=== PATIENT | female | born 1950 | race Caucasian/White ===

== ENCOUNTER → 2017-09-29 | Day surgery (SDC) | payer MEDICARE, BC ==
[~2017-09-29] MED LIST: ACETAMINOPHEN/HYDROcodone 325 MG/5 MG TAB ONE; BUPIVACAINE/EPINEPHRINE 0.5% PF 30 ML VIAL ONE; ISOSULFAN BLUE 50 MG/5 ML VIAL SQ ONE; LACTATED RINGER'S 1000 ML INJ 1,000 ML ONE; MEPERIDINE HCL 50 MG/ML VIAL ONE; MIDAZOLAM HCL 2 MG/2 ML VIAL ONE; ONDANSETRON HCL 4 MG/2 ML VIAL IV PUSH ONE; PROPOFOL 200 MG/20 ML AMP IV ONE; SODIUM CHLORIDE 0.9% INJ 0 ML ONE; ceFAZolin 2 GM PREMIX 50 ML ONE
--- NOTE | 2017-09-29 16:56 | RADONCENDT ---
END OF TREATMENT SUMMARY Date: 09/29/2017 Patient Name: Rachel Ham Date of : 1950 Age: 67 Sex: Female END OF TREATMENT SUMMARY PRIMARY REFERRING PHYSICIAN: Jonah Chaney CC: Jonah Chaney MD DIAGNOSIS: Primary C50.411 - Malignant neoplasm of upper-outer quadrant of right female breast, Diagnosed 09/01/2017 (Active) PRESCRIPTION AND TREATMENT: 2000 cGy to surface of applicator- TREATED PLAN FRACTIONS AND DATES: Course: One fraction delivered on 09/29/2017 TOLERANCE: Patient completed treatment without complications. FOLLOW UP PLAN: Patient to be seen in about 4 weeks. Vitor Harris MD 09/29/2017 4:56:21 PM This report was verified and signed electronically
--- NOTE | 2017-09-29 16:58 | RADONCOP ---
OPERATIVE REPORT Date: 09/29/2017 Patient Name: Rachel Ham OPERATIVE REPORT DATE OF SURGERY: 09/29/2017 REFERRING PHYSICIAN: Jonah Chaney PREOPERATIVE DIAGNOSIS: C50.411 - Malignant neoplasm of upper-outer quadrant of right female breast, Diagnosed 09/01/2017 (Active) POSTOPERATIVE DIAGNOSIS: C50.411 - Malignant neoplasm of upper-outer quadrant of right female breast, Diagnosed 09/01/2017 (Active) PROCEDURE: Intraoperative Radiation Therapy to the . SURGEON: Jonah Chaney ANESTHESIA: General ESTIMATED BLOOD LOSS: Minimal . INDICATIONS: Patient is a 67 year old female presenting with early stage breast cancer. She has elected to receive targeted intraoperative radiation therapy to the . DESCRIPTION OF PROCEDURE: Patient was taken to the operating room and placed on the table in the supine position. Following induction of general anesthesia, the and arm were prepped and draped sterilely. Ultrasound was performed of the breast to document the location of the breast malignancy. The wound was prepared for intraoperative radiation therapy. Based on the diameter of the cavity, a 4.5 cm radiation applicator was selected for the delivery of intraoperative radiation therapy. The applicator was then sterilely mounted onto the Intrabeam Stand. Retracting sutures were placed within the skin to be used to retract the skin edges away from the radiation source. The 4.5 cm Radiation applicator was then sterilely inserted into the wound. The superficial purse-string suture was tied down. Ultrasound was performed of the breast to document conformity of the surgical margins and the distance from the applicator to the skin surface (> 1.0 cm). The retracting sutures were then secured and a moistened lap pad was placed on the skin surface, followed by an external radiation barrier. Intraoperative radiotherapy was then initiated by the Radiation Oncologist. Total treatment time was 35 minutes. Upon completion of the intraoperative radiotherapy treatment, the radiation applicator, purse-string sutures and retracting sutures were removed from the wound. The wound was once again irrigated. Hemostasis was confirmed. The patient was then turned back over to the surgeon, Jonah Chaney in stable condition for completion of surgical procedure. Vitor Harris MD 09/29/2017 4:57:53 PM This report was verified and signed electronically
--- NOTE | 2017-09-30 12:48 | MP ---
cc: Jonah Chaney MD DATE OF OPERATION: 09/29/2017 PREOPERATIVE DIAGNOSIS: Right breast cancer, invasive ductal carcinoma. POSTOPERATIVE DIAGNOSIS: Right breast cancer, invasive ductal carcinoma. PROCEDURE PERFORMED: 1. Right axillary sentinel lymph node biopsy for invasive breast cancer. 2. Needle localized lumpectomy, right breast. 3. Placement of intraoperative radiation therapy probe 4.5 cm. ATTENDING SURGEON: Jonah Chaney MD TABLE MACHINE OPERATOR: AD Ugarte ANESTHESIA: General and local anesthetic. ESTIMATED BLOOD LOSS: Less than 25 cc COMPLICATIONS: None. FINDINGS: Adequate placement of 4.5 cm Zeiss intraoperative radiation therapy probe. INDICATIONS FOR THE PROCEDURE: The patient is a 67-year-old female who self palpated a mass in her right breast. The patient underwent mammogram, which showed a BI-RADS lesion suspicious for malignancy. The patient underwent a biopsy which showed invasive ductal carcinoma. After discussion with the patient about the treatment options and clinical staging, she was found to be a candidate for lumpectomy and intraoperative radiation therapy. The risks, benefits and alternatives were discussed. She agreed to undergo the procedure. The patient was also cleared and evaluated by Dr. Harris of radiation oncology prior to the procedure. NOTE: Nurse Practitioner, Stacey Hernandez's, presence was required throughout the procedure for the safe and efficient operation of this patient, as intraoperative therapy added to the complexity of the procedure. DESCRIPTION OF THE PROCEDURE: After the patient had undergone lymphoscintigraphy, as well as needle localization, the patient was taken to the operating room, placed in the supine position and placed under anesthesia with LMA airway. The patient's right axilla and breast were prepped and draped in a sterile fashion. Time out was performed. The sentinel lymph node biopsy was performed first. We used a small amount of local anesthetic below the axillary hairline and made a 3 cm incision with a 15 blade scalpel. We used Bovie electrocautery to the sites of the subcutaneous tissue and opened the clavipectoral fascia. Self retractor was placed and we gently explored the right axilla. There were two palpable nodes. These were actually the sentinel nodes. They were soft and seemed reactive. We excised these completely with the Bovie electrocautery and sent this separately. There was some tissue as well that was seen to have some background uptake and was palpable adjacent to these nodes and this was taken and sent as separate axillary tissue, nonsentinel type tissue. We evaluated the axilla. There was no bleeding. At this point in time, the background was minimal in the right axilla. We turned our attention towards closure. We closed the clavipectoral fascia gently with a running 3-0 Vicryl suture. We closed the skin with 4-0 Monocryl and Dermabond. We turned our attention towards the right breast and the needle localized lumpectomy. The wire was cut short to facilitate bringing it into the field. We made an approximately 4 cm incision around the skin areola interface laterally in the right breast. We used Bovie electrocautery to subcutaneous tissue and performed a lumpectomy cavity. The mass was somewhat palpable and, therefore, we could come down from top to bottom, staying completely around the mass with good margins. We did ellipse a small area of skin over this, directly over the specimen to facility IROT catheter placement. We continued dissection down until we encountered the wire. This was brought into the field and then we finally used again Bovie electrocautery to take the posterior margin from the lumpectomy cavity. It was marked with a stitch short superior and long anterior, which was also the skin margin. This was sent for radiology intraoperative evaluation and the specimen was found to be in the center of the lumpectomy cavity. We then irrigated out the cavity and used Bovie electrocautery to get excellent hemostasis. There was what seemed like some scar from an old biopsy site medial and inferior, so additional margins were taken at this area with the Metzenbaum scissors and was marked with stitch as true margin. We then turned our attention towards IROT probe placement. We sized this. This was approximately between 4 and 5 cm on measurement, and the 4.5 cm probe was placed into the cavity without difficulty. This was sutured down with a pursestring suture and ultrasound evaluation with Dr. Harris in the room was adequate for treatment. Please see separate documentation. We then placed this on the THEVA Intraoperative Therapy Machine according to biomass production manager's recommendations with sterile drape and placed it back into the lumpectomy cavity. We tied down the pursestring at the skin, again confirmed on ultrasound we had adequate spacing and continued with IROT. Shielding was placed. IROT was performed. Please see separate documentation. At the end of the IROT procedure, the surgical team reentered the room and scrubbed. We removed the IROT catheter and the pursestring suture. We inspected the cavity. There was no evidence of any bleeding. We had excellent hemostasis. We closed the cavity with 3-0 Vicryl followed by 4-0 Monocryl and Dermabond. At this point in time, the patient was discontinued from anesthesia, and taken to the PACU in stable condition. The patient tolerated the procedure well. No apparent complications. All counts were correct. I was present and scrubbed for the entire procedure. MD DOM Garcia/LAMAR , 04:37 PM , 05:39 PM
== END | disposition home or self-care (01) ==
LOC: ESDC 08:42
PROVIDERS: ATTEND Surgery
DX: C50.911 Malignant neoplasm of unspecified site of right female breast (principal)
CPT/HCPCS: 00400; 01610; 19294; 19301; 38525; 38792; 77290; 77300; 77334; 77370; 77424; 88307; J0690; J2175; J2250; J2405; J3010; J7120; Q9968

== ENCOUNTER 2018-01-24 12:45 | Day surgery (SDC) | payer MEDICARE, BC ==
[2018-01-24] MEDS ORDERED: SIMV20TA PO (13:06)
[2018-01-24] MEDS ORDERED: LOSA100T PO (13:06)
[2018-01-24] MEDS ORDERED: LEVO137T2 PO (13:06)
[2018-01-24] MEDS ORDERED: SPIR100T PO (13:06)
[2018-01-24] MEDS ORDERED: AMBI10TA PO (13:06)
[2018-01-24 14:20] VITALS: BP 128/70; PULSE 67; RESP 18; TEMP 98.2; O2SAT 95
--- NOTE | 2018-01-24 16:37 | PD.RAD ---
Radiology Post PICC Prog Note Procedure: Left PICC line replacement Procedure Date: Jan 24, 2018 Supervising Radiologist Rizwan Cuevas Proceduralist/Assist: Lin Prado RT(R)() Device Side: Left [place]: 4 single lumen Catheter: Power PICC Plan of Activity Patient to Unit: ROPU Patient Condition: Good PICC line can be used immediately Rizwan Cuevas MD Jan 24, 2018 16:37
[2018-01-24] MEDS ORDERED: SODIUM CHLORIDE 0.9% FLUSH 10 ML FLUSH IVF PRN ×2 (16:45)
[2018-01-25] MEDS ORDERED: SODIUM CHLORIDE 0.9% FLUSH 10 ML FLUSH IVF SCH (09:00)
--- NOTE | 2018-01-25 13:42 | RADRPT ---
EXAM DATE: 01/24/2018 2:46 PM EDT AGE/SEX: 68 years / Female INDICATIONS: Patient presents with right breast cancer in need of peripheral intravenous line placem ent for chemotherapy treatment. CLINICAL DATA: This is the patient's initial encounter. Patient reports that signs and symptoms have been present for 1 month and indicates a pain score of 0/10. MEDICAL/SURGICAL HISTORY: . Mets right breast . Breast biopsy Lymph radiation Right lumpectomy COMPARISON: No prior exams available for comparison. FLUORO TIME (min): 0.6 IMAGE SERIES: 2 ACCESS SITE: Left brachial vein MEDICATION(S): 200 units Heparin IV DEVICE(S): 4 Pakistani single lumen 44cm Xcela Power PICC . . PROCEDURE : 1. Ultrasound guidance for venous catheterization. 2. Fluoroscopic guidance. 3. Ultrasound & fluoroscopic guided central venous Power PICC line placement. The risks, benefits and alternatives to the procedure were explained and verbal and written consent w as obtained. The site was prepped in sterile fashion. Full sterile technique was used, including ca p, mask, sterile gloves and gown and a large sterile sheet. Hand hygiene and 2% chlorhexidine prep w as utilized per protocol for cutaneous antisepsis with appropriate dry time for site. Sterile gel a nd sterile probe cover were utilized for ultrasound guidance. The skin and subcutaneous tissues wer e infiltrated with local anesthetic solution. Under direct ultrasound guidance, a suitable vein was accessed and a measuring guidewire was introduc ed and positioned in the central venous system. The ultrasound images depicting access guidance were saved and stored to PACS for permanent record. A Power Injectable PICC line was cut to prescribed length and introduced, positioned with tip at the cavoatrial junction level. The line was flushed and secured per protocol. CONCLUSION: 1. Uncomplicated central venous Power PICC line placement. 2. The PICC line can be used immediately. Electronically signed by: Rizwan Cuevas MD 01/25/2018 1:41 PM EDT
== END 2018-01-24 14:46 | disposition home or self-care (01) ==
LOC: HROP 12:45 → HRIP 12:45 → HROP 14:46
PROVIDERS: ATTEND Internal Medicine Hematology
DX: Z45.2 Encounter for adjustment and management of vascular access device (principal); C50.911 Malignant neoplasm of unspecified site of right female breast
CPT/HCPCS: 36569; 76937; 77001; C1751; J1642